=== PATIENT | male | born 1995 | race Caucasian/White ===

== ENCOUNTER 2017-03-20 19:05 | Emergency (ER) | payer SELFPAY ==
[~2017-03-20] VITALS: Ht 180.3 cm; Wt 74.4 kg
[2017-03-20 19:16] VITALS: TEMP 36.8; Ht 180.3 cm; Wt 74.4 kg
--- NOTE | 2017-03-20 20:02 | EMERGENCY ROOM VISIT NOTE ---
History Report prepared by Feliz: Vanessa Ramírez Under the Supervision of: Dr. Arcadio Villarreal D.O. First contact with patient: 19:12 Stated Complaint: ETOH History of Present Illness The patient is a 21 year old male who presents to the Emergency Room with complaints of constant alcohol intoxication beginning [employer]. The patient states that he was drinking and he tripped on a curb and hit his face. He reports that he chipped his front tooth and he saw the tooth on the ground. He complains of abrasions on the face and nose bleeding. The patient denies any loss of consciousness. Source of History: patient Onset: [employer]LE[employer]GER Position: other (global) Quality: other (alcohol intoxication) Timing: constant Associated Symptoms: No neck pain Note: Pt complains of a fall, facial abrasions, chipped tooth, and nose bleeding. Review of Systems See HPI for pertinent positives & negatives. A total of 10 systems reviewed and were otherwise negative. Past Medical & Surgical Medical Problems: (1) No Known Active Medical Problems Family History No pertinent family history stated. Social History Marital Status: single Housing Status: lives with roommate Occupation Status: [employer] student Current/Historical Medications No Active Prescriptions or Reported Meds Allergies Coded Allergies: No Known Allergies (Unverified , 03/20/17) Physical Exam Vital Signs Date Time Temp Pulse Resp B/P (MAP) Pulse Ox O2 Delivery O2 Flow Rate FiO2 03/20/17 19:55 98 16 146/91 98 Room Air 03/20/17 19:16 36.8 98 16 146/91 100 Room Air Physical Exam CONSTITUTIONAL/VITAL SIGNS: Reviewed / noted above. GENERAL: Non-toxic in appearance. Smell of alcohol on the breath. INTEGUMENTARY: Warm, dry, and [place]. HEAD: Facial abrasions. EYES: without scleral icterus or trauma. ENT/OROPHARYNX: clear and moist. Fracture of the left upper incisor, blood in bilateral naris, no septal hematoma, LYMPHADENOPATHY/NECK: Is supple without lymphadenopathy or meningismus. RESPIRATORY: Lungs clear and equal. CARDIOVASCULAR: Regular rate and rhythm. GI/ABDOMEN: Soft and nontender. No organomegaly or pulsatile mass. No rebound or guarding. Normal bowel sounds. EXTREMITIES: Warm and well perfused. BACK: No CVA tenderness. NEUROLOGICAL: Intact without focal deficits. Smell of alcohol on the breath. PSYCHIATRIC: normal affect. MUSCULOSKELETAL: Normally developed with good muscle tone. Medical Decision & Procedures ED Course 1911: Previous medical records were reviewed. The patient was evaluated in room C12A. A complete history and physical examination was performed. 1942: I reevaluated the patient and bonded the patient's tooth. 2002: On reevaluation, the patient is doing well. I discussed the results and findings with the patient. He verbalized agreement of the treatment plan. The patient was discharged home. Medical Decision There is no evidence of other toxic ingestions, trauma, anemia, hypoglycemia, head injury or intracranial pathology, meningitis, encephalitis, acute intrathoracic or abdominal pathology or other metabolic condition. This is a 21-year-old male who presents to the ED with a chief complaint fall and facial injuries. The patient states that he stumbled and tripped falling onto the sidewalk. He presents with abrasions to his face and some dry blood in his nose. The patient has a fracture of the left upper incisor that is throughout half of the tooth. The patient denies any other injuries. Denies loss of consciousness. The patient does not want any specific imaging studies or tests done. There was no septal hematoma on exam in the nares. The exposed portions of the left upper incisor and a small portion of the right upper incisor were bonded to protect the underlying surfaces. The wounds were abrasions to the face and did not require specific repair. Topical antibiotic was applied to these areas. The patient was advised to see his dentist as soon as possible for evaluation of his tooth. His tetanus shot is up-to-date. He is to watch for infection. He is felt to be stable for discharge. He denied having any midline tenderness of the cervical, thoracic or lumbar spine. Denies other injuries. Medication Reconcilliation Current Medication List: was personally reviewed by me Blood Pressure Screening Patient's blood pressure: Elevated blood pressure Blood pressure disposition: Elevated BP felt to be situational Impression Primary Impression: Facial abrasion Additional Impression: Fracture, tooth Scribe Attestation The scribe's documentation has been prepared under my direction and personally reviewed by me in its entirety. I confirm that the note above accurately reflects all work, treatment, procedures, and medical decision making performed by me. Departure Information Dispostion Home / Self-Care Prescriptions No Active Prescriptions or Reported Meds Forms HOME CARE DOCUMENTATION FORM, IMPORTANT VISIT INFORMATION Additional Instructions See your dentist as soon as possible for evaluation of your dental injuries. Watch for infection of the wounds. Apply topical antibiotic to your facial wounds. Take Tylenol or Motrin for pain. Problem Qualifiers
[2017-03-20 20:14] VITALS: BP 126/67; PULSE 91; O2SAT 96
== END 2017-03-20 20:16 | disposition home or self-care (01) ==
LOC: EDBD 19:05 → C.EDC 19:06
DX: S00.81XA Abrasion of other part of head, initial encounter (principal); S02.5XXA Fracture of tooth (traumatic), initial encounter for closed fracture; W01.0XXA Fall on same level from slipping, tripping and stumbling without subsequent striking against object, initial encounter